=== PATIENT | male | born 1960 | race African-American/Black ===

== ENCOUNTER 2023-02-25 11:56 | Inpatient (IN) | payer OTHER ==
[2023-02-25 12:38] VITALS: BMI 24.8
[2023-02-25] MEDS ORDERED: METHOCARBAMOL 500 MG TABLET PO PRN (13:59)
[2023-02-25] MEDS ORDERED: LOPERAMIDE HCL 2 MG CAPSULE PO PRN (13:59)
[2023-02-25] MEDS ORDERED: POLYETHYLENE GLYCOL (HEALTHYLAX) 3350 17 GM PACKET PO PRN (13:59)
[2023-02-25] MEDS ORDERED: IBUPROFEN 400 MG TABLET (FP) PO PRN (13:59)
[2023-02-25] MEDS ORDERED: hydrOXYzine PAMOATE 25 MG CAPSULE (FP) PO PRN (13:59)
[2023-02-25] MEDS ORDERED: NALOXONE HCL (KLOXXADO) 8 MG SPRAY NS PRN (13:59)
[2023-02-25] MEDS ORDERED: DICYCLOMINE HCL 10 MG CAPSULE PO PRN (13:59)
[2023-02-25] MEDS ORDERED: BENZONATATE 200 MG CAPSULE PO PRN (13:59)
[2023-02-25] MEDS ORDERED: ONDANSETRON *ODT* 4 MG TABLET SL PRN (13:59)
[2023-02-25] MEDS ORDERED: guaiFENesin 600 MG TABLET.ER (FP) PO PRN (13:59)
[2023-02-25] MEDS ORDERED: BENZOCAINE/MENTHOL (CHLORASEPTIC ) LOZENGE MM PRN (13:59)
[2023-02-25] MEDS ORDERED: MAGNESIUM HYDROX 2400MG/30ML ORAL SUSPENSION 30 ML CUP PO PRN (13:59)
[2023-02-25] MEDS ORDERED: MAG HYDROX/AL HYDROX/SIMETH 30 ML UNIT-DOSE CUP PO PRN (13:59)
[2023-02-25] MEDS ORDERED: BISMUTH SUBSALICYLATE 262 MG/15 ML BTL PO PRN (13:59)
[2023-02-25] MEDS ORDERED: LORazepam 2 MG TABLET PO ONE (13:59)
[2023-02-25] MEDS ORDERED: NALOXONE HCL 0.4 MG/ML VIAL IM PRN (13:59)
[2023-02-25] MEDS ORDERED: LORazepam 1 MG TABLET PO PRN (13:59)
[2023-02-25] MEDS ORDERED: ONDANSETRON *ODT* 4 MG TABLET ONE (14:23)
[2023-02-25] MEDS ORDERED: LORazepam 1 MG TABLET ONE (14:24)
[2023-02-25] MEDS: PRENATAL VITAMINS W/ FOLIC ACID TABLET (FP) PO SCH (14:47)
[2023-02-25 16:16] LABS: POTASSIUM 3.1 mmol/L (3.5-5.1)
[2023-02-25 16:21] LABS: ALBUMIN 2.7 g/dl (3.4-5.0); CALCIUM 8.5 mg/dL (8.5-10.1); HEMATOCRIT 30.3 % (35.4-49); HEMOGLOBIN 10.7 GM/dL (11.7-16.9); MCHC 35.2 g/dl (32.0-35.9); MEAN CELL VOLUME 117.5 fl (80-96); MEAN PLT VOLUME 8.2 fl (7.5-11.1); PLATELET COUNT 375 10^3/uL (134-434); RBC 2.58 M/mm3 (4.00-5.60); WHITE BLOOD COUNT 7.1 K/mm3 (4.0-10.0)
[2023-02-25 16:24] LABS: CREATININE 0.7 mg/dL (0.55-1.3)
[2023-02-25 16:25] LABS: TOT PROT 6.9 g/dl (6.4-8.2)
[2023-02-25 16:26] LABS: BILIRUBIN,TOTAL 1.5 mg/dL (0.2-1)
[2023-02-25 16:27] LABS: BLOOD UREA NITROGEN 3.2 mg/dL (7-18)
[2023-02-25 16:28] LABS: MCH 41.4 pg (25.7-33.7)
[2023-02-25] MEDS: amLODIPine BESYLATE 10 MG TABLET (FP) PO SCH (16:33)
[2023-02-25] MEDS: PANTOPRAZOLE 20 MG TABLET PO SCH (16:35)
[2023-02-25] MEDS: LORazepam 2 MG TABLET PO SCH ×2 (17:49→22:54)
[2023-02-25] MEDS: THIAMINE HCL 100 MG TABLET (FP) PO SCH (22:53)
[2023-02-25] MEDS: MELATONIN 5 MG TABLETS PO SCH (22:54)
[2023-02-26] MEDS: LORazepam 2 MG TABLET PO SCH ×4 (06:08→22:07)
[2023-02-26] MEDS: amLODIPine BESYLATE 10 MG TABLET (FP) PO SCH (11:00)
[2023-02-26] MEDS: PANTOPRAZOLE 20 MG TABLET PO SCH (11:01)
[2023-02-26] MEDS: PRENATAL VITAMINS W/ FOLIC ACID TABLET (FP) PO SCH (11:01)
[2023-02-26] MEDS: POTASSIUM CHLORIDE ORAL LIQUID 20 MEQ/15 ML PO SCH ×2 (11:02→22:54)
[2023-02-26] MEDS: ACETAMINOPHEN 325 MG TABLET (FP) PO PRN (11:06)
[2023-02-26] MEDS: THIAMINE HCL 100 MG TABLET (FP) PO SCH (22:07)
[2023-02-26] MEDS: IBUPROFEN 600 MG TABLET (FP) PO PRN (22:08)
[2023-02-26] MEDS: MELATONIN 5 MG TABLETS PO SCH (22:10)
[2023-02-26] MEDS: LACTULOSE 20 GM/30 ML UDC (FOR ORAL USE ONLY) PO SCH (22:54)
[2023-02-27] MEDS: LORazepam 1 MG TABLET PO SCH ×4 (06:07→22:38)
[2023-02-27 09:59] LABS: HEMOGLOBIN 9.3 GM/dL (11.7-16.9); MCHC 34.5 g/dl (32.0-35.9); MEAN CELL VOLUME 117.9 fl (80-96); PLATELET COUNT 254 10^3/uL (134-434); RBC 2.29 M/mm3 (4.00-5.60); RDW 15.7 % (11.9-15.9); WHITE BLOOD COUNT 3.7 K/mm3 (4.0-10.0)
[2023-02-27 10:03] LABS: POTASSIUM 3.1 mmol/L (3.5-5.1)
[2023-02-27 10:06] LABS: MCH 40.7 pg (25.7-33.7)
[2023-02-27 10:32] LABS: ALBUMIN 2.3 g/dl (3.4-5.0); CALCIUM 8.2 mg/dL (8.5-10.1)
[2023-02-27 10:33] LABS: BLOOD UREA NITROGEN 5.8 mg/dL (7-18)
[2023-02-27 10:36] LABS: CREATININE 0.6 mg/dL (0.55-1.3)
[2023-02-27 10:37] LABS: TOT PROT 5.9 g/dl (6.4-8.2)
[2023-02-27] MEDS: PANTOPRAZOLE 20 MG TABLET PO SCH (10:41)
[2023-02-27] MEDS: PRENATAL VITAMINS W/ FOLIC ACID TABLET (FP) PO SCH (10:41)
[2023-02-27] MEDS: amLODIPine BESYLATE 10 MG TABLET (FP) PO SCH (10:41)
[2023-02-27] MEDS: POTASSIUM CHLORIDE ORAL LIQUID 20 MEQ/15 ML PO SCH (10:41)
[2023-02-27] MEDS: LACTULOSE 20 GM/30 ML UDC (FOR ORAL USE ONLY) PO SCH ×2 (10:42→22:38)
[2023-02-27] MEDS ORDERED: POTASSIUM CHLORIDE ORAL LIQUID 20 MEQ/15 ML PO ONE (16:00)
[2023-02-27] MEDS: ACETAMINOPHEN 325 MG TABLET (FP) PO PRN (17:53)
[2023-02-27] MEDS: THIAMINE HCL 100 MG TABLET (FP) PO SCH (22:38)
[2023-02-27] MEDS: IBUPROFEN 600 MG TABLET (FP) PO PRN (22:39)
[2023-02-27] MEDS: MELATONIN 5 MG TABLETS PO SCH (22:41)
[2023-02-28] MEDS ORDERED: LORazepam 0.5 MG TABLET PO PRN
[2023-02-28] MEDS: LORazepam 0.5 MG TABLET PO SCH ×2 (06:20→11:37)
[2023-02-28 09:44] VITALS: BP 120/81; PULSE 107; RESP 18; TEMP 97.8
[2023-02-28] MEDS: PANTOPRAZOLE 20 MG TABLET PO SCH (09:52)
[2023-02-28] MEDS: PRENATAL VITAMINS W/ FOLIC ACID TABLET (FP) PO SCH (09:52)
[2023-02-28] MEDS: LACTULOSE 20 GM/30 ML UDC (FOR ORAL USE ONLY) PO SCH (09:52)
[2023-02-28] MEDS: amLODIPine BESYLATE 10 MG TABLET (FP) PO SCH (09:52)
[2023-03-01] MEDS ORDERED: LORazepam 0.5 MG TABLET PO ONE (05:00)
== END 2023-02-28 11:15 | disposition home or self-care (01) | DRG 775 ==
LOC: YASAS 11:56 → Y6N 14:26
PROVIDERS: ADMIT Allergy & Immunology; ATTEND Surgery
PROC: HZ2ZZZZ Detoxification Services for Substance Abuse Treatment (ICD-10-PCS; principal; 2023-02-25)
DX: F10.230 Alcohol dependence with withdrawal, uncomplicated (principal); F10.280 Alcohol dependence with alcohol-induced anxiety disorder; F41.9 Anxiety disorder, unspecified; E72.20 Disorder of urea cycle metabolism, unspecified; E87.6 Hypokalemia; I10 Essential (primary) hypertension; Z87.891 Personal history of nicotine dependence; Z99.3 Dependence on wheelchair; Z88.0 Allergy status to penicillin
CPT/HCPCS: 36415; 80053; 82140; 84132; 85027; 86780; 93005; 93010; C9803-CS; Q0162; U0003; U0005

== ENCOUNTER 2025-06-18 11:58 | Inpatient (IN) | payer OTHER ==
[2025-06-18 13:00] VITALS: BMI 23.6
[2025-06-18] MEDS ORDERED: POLYETHYLENE GLYCOL (HEALTHYLAX) 3350 17 GM PACKET PO PRN (13:20)
[2025-06-18] MEDS ORDERED: IBUPROFEN 600 MG TABLET (FP) PO PRN (13:20)
[2025-06-18] MEDS ORDERED: NALOXONE (NARCAN) HCL 4 MG/0.1 ML SPRAY NS PRN (13:20)
[2025-06-18] MEDS ORDERED: METHOCARBAMOL 500 MG TABLET PO PRN (13:20)
[2025-06-18] MEDS ORDERED: BENZOCAINE/MENTHOL (CHLORASEPTIC ) LOZENGE MM PRN (13:20)
[2025-06-18] MEDS ORDERED: LOPERAMIDE HCL 2 MG CAPSULE PO PRN (13:20)
[2025-06-18] MEDS ORDERED: BISMUTH SUBSALICYLATE 524 MG/30 ML PO PRN (13:20)
[2025-06-18] MEDS ORDERED: ACETAMINOPHEN 325 MG TABLET (FP) PO PRN (13:20)
[2025-06-18] MEDS ORDERED: IBUPROFEN 400 MG TABLET (FP) PO PRN (13:20)
[2025-06-18] MEDS ORDERED: PRENATAL VITAMINS W/ FOLIC ACID TABLET (FP) PO ONE (13:43)
[2025-06-18] MEDS ORDERED: ONDANSETRON *ODT* 4 MG TABLET ONE (13:43)
[2025-06-18] MEDS: ONDANSETRON *ODT* 4 MG TABLET SL PRN (13:44)
[2025-06-18] MEDS: PRENATAL VITAMINS W/ FOLIC ACID TABLET (FP) PO SCH (13:45)
[2025-06-18] MEDS ORDERED: MAG HYDROX/AL HYDROX/SIMETH 30 ML UNIT-DOSE CUP ONE (15:23)
[2025-06-18] MEDS: MAG HYDROX/AL HYDROX/SIMETH 30 ML UNIT-DOSE CUP PO PRN (15:25)
[2025-06-18] MEDS: BENZONATATE 200 MG CAPSULE PO PRN (19:07)
[2025-06-18] MEDS: THIAMINE 100 MG TABLET PO SCH (22:17)
[2025-06-18] MEDS: ATORVASTATIN CA 10 MG TABLET (FP) PO SCH (22:17)
[2025-06-18] MEDS: MELATONIN 5 MG TABLETS PO SCH (22:17)
[2025-06-18] MEDS: guaiFENesin 600 MG TABLET.ER (FP) PO PRN (22:19)
[2025-06-18] MEDS: hydrOXYzine PAMOATE 25 MG CAPSULE (FP) PO PRN (22:46)
[2025-06-19] MEDS: amLODIPine BESYLATE 10 MG TABLET (FP) PO SCH (10:08)
[2025-06-19] MEDS: ASPIRIN 81 MG CHEWABLE TABLETS PO SCH (10:09)
[2025-06-19] MEDS: FAMOTIDINE 20 MG TABLET PO SCH (10:09)
[2025-06-19 10:34] LABS: MCHC 34.9 g/dl (32.3-36.5); MEAN CELL VOLUME 94.5 fl (79.0-92.2); MEAN PLT VOLUME 11.1 fl (9.4-12.4); RDW 13.2 % (12.2-16.4)
[2025-06-19 10:41] LABS: GLUCOSE,RANDOM 89 mg/dL (74-106)
[2025-06-19 10:42] LABS: TOT PROT 8.8 g/dl (6.4-8.2)
[2025-06-19 10:43] LABS: CO2 21 mmol/L (21-32)
[2025-06-19 10:44] LABS: ALK PHOS 94 U/L (40-150)
[2025-06-19 10:47] LABS: CREATININE 0.65 mg/dL (0.55-1.3); SGOT/AST 93 U/L (5-34); SGPT/ALT 41 U/L (0-55)
[2025-06-19] MEDS: LIDOCAINE 5% TOPICAL PATCH TP SCH (12:13)
[2025-06-19] MEDS: SODIUM POLYSTYRENE SULFONATE 15 GM/60 ML BOTTLE PO SCH (13:55)
[2025-06-19] MEDS: LIDOCAINE PATCH REMOVAL MC SCH (22:45)
[2025-06-20] MEDS: MAGNESIUM HYDROX 2400MG/30ML ORAL SUSPENSION 30 ML CUP PO PRN (01:21)
[2025-06-20 11:13] LABS: GLUCOSE,RANDOM 104.0 mg/dL (74-106)
[2025-06-20 11:14] LABS: TOT PROT 7.1 g/dl (6.4-8.2)
[2025-06-20 11:15] LABS: CO2 26.0 mmol/L (21-32)
[2025-06-20 11:19] LABS: CREATININE 0.82 mg/dL (0.55-1.3); SGOT/AST 48.0 U/L (5-34); SGPT/ALT 29.0 U/L (0-55)
[2025-06-20 11:25] LABS: ALK PHOS 80.0 U/L (40-150)
[2025-06-20] MEDS: DICYCLOMINE HCL 10 MG CAPSULE PO PRN (11:52)
[2025-06-20] MEDS: SODIUM CHLORIDE 1 GM TABLET PO SCH (13:04)
[2025-06-21 09:42] VITALS: BP 137/82; PULSE 80; RESP 12; TEMP 97.3
[2025-06-21 10:17] LABS: CO2 28.0 mmol/L (21-32)
== END 2025-06-21 10:50 | disposition home or self-care (01) | DRG 897 ==
LOC: YASAS 11:58 → Y3N 15:43
PROVIDERS: ADMIT Allergy & Immunology; ATTEND Counselor Addiction (Substance Use Disorder)
PROC: HZ2ZZZZ Detoxification Services for Substance Abuse Treatment (ICD-10-PCS; principal; 2025-06-18)
DX: F10.230 Alcohol dependence with withdrawal, uncomplicated (principal); E87.1 Hypo-osmolality and hyponatremia; F10.280 Alcohol dependence with alcohol-induced anxiety disorder; F41.9 Anxiety disorder, unspecified; I10 Essential (primary) hypertension; E87.6 Hypokalemia; K21.9 Gastro-esophageal reflux disease without esophagitis; Z86.73 Personal history of transient ischemic attack (TIA), and cerebral infarction without residual deficits; Z88.8 Allergy status to other drugs, medicaments and biological substances
CPT/HCPCS: 36415; 80051; 80053; 80307; 82140; 82330; 82607; 83735; 85027; 86780; 93005; 93010; Q0162